=== PATIENT | male | born 1980 | race Caucasian/White ===

== ENCOUNTER 2019-01-03 20:28 | Emergency (ER) | payer BC ==
--- NOTE | 2019-01-03 21:06 | RADIOLOGY REPORT (SQ) ---
EXAM DESCRIPTION: XR WRIST 3 OR MORE VIEWS COMPLETED DATE/TME: 01/03/2019 20:32 CLINICAL HISTORY: 38 years, Male, FOOSH Findings: Bony alignment is anatomic. No fracture or dislocation. Soft tissues are unremarkable. IMPRESSION: No fracture.
[2019-01-03] MEDS ORDERED: OXYCODONE-ACETAMINOPHEN 5-325 MG TABLET PO ONE (21:44)
--- NOTE | 2019-01-03 21:50 | ER Document Report ---
Addendum entered and electronically signed by KRZYSZTOF MATOS PA-C 01/04/19 01:11: Course - Re-evaluation Re-evalutation: 01/04/19 01:08 Patient's x-rays were negative but patient's pain was out of proportion with his exam and after discussing the case with Dr. Odonnell I decided to workup the patient with IV contrasted chest and abdomen pelvis CTs. The sutures on the left wrist were discontinued by the nurse out here in triage because they had been in there for 3 weeks and they were nylon sutures that would not have dissolved on their own. Patient continues to have severe right upper quadrant/rib pain. Need to rule out injury to the liver. Also severe pain in the ribs still. He will get an IV, basic trauma labs, CT scan chest abdomen and pelvis and IV fluids. - Vital Signs Vital signs: Temp Pulse Resp BP Pulse Ox 98.2 F 57 L 24 H 139/73 H 97 01/03/19 20:56 01/03/19 20:56 01/03/19 20:56 01/03/19 20:56 01/03/19 20:56 - Laboratory Laboratory results interpreted by me: 01/03/19 21:54 Urine Protein 30 H Urine Ketones 20 H Urine Bilirubin SMALL H Urine Urobilinogen 4.0 H Original Note: ED Medical Screen (RME) - General Chief Complaint: Fall Stated Complaint: FALL INJURY Time Seen by Provider: 01/03/19 21:42 Primary Care Provider: EDISON,NO [Primary Care Provider] - Follow up as needed Notes: 38-year-old male coming in today with chief complaint that he fell out of a tree. Patient states he fell roughly 5-7 feet out of a tree. He is complaining of pain in the right side of his lower back. He is also having bilateral rib pain. Also having some pain to his left hand. He does not complain of any chest injury, abdominal injury or cervical spine injury. He states that he did hit his head but did not lose consciousness have dizziness lightheadedness or syncope. I have treated and performed a rapid initial assessment of this patient. A comprehensive ED assessment and evaluation of the patient, analysis of test results and completion of medical decision making process will be conducted by additional ED providers. PHYSICAL EXAMINATION: GENERAL: Patient appears uncomfortable.. LUNGS: CTA. no distress HEART: Regular rate and rhythm without murmurs, rubs, gallops. ABDOMEN: Soft, nondistended abdomen. No guarding, no rebound. Normal bowel sounds present. No CVA tenderness bilaterally. Extremities: Left hand diffusely tender. Back: right sided lumbar tenderness. NEUROLOGICAL: Normal speech, normal gait. PSYCH: Normal mood, normal affect. TRAVEL OUTSIDE OF THE [place] IN LAST 30 DAYS: No Physical Exam - Vital signs Vitals: Temp Pulse Resp BP Pulse Ox 98.2 F 57 L 24 H 139/73 H 97 01/03/19 20:56 01/03/19 20:56 01/03/19 20:56 01/03/19 20:56 01/03/19 20:56 Course - Vital Signs Vital signs: Temp Pulse Resp BP Pulse Ox 98.2 F 57 L 24 H 139/73 H 97 01/03/19 20:56 01/03/19 20:56 01/03/19 20:56 01/03/19 20:56 01/03/19 20:56 Doctor's Discharge - Discharge Referrals: LOCALMD,NO [Primary Care Provider] - Follow up as needed
[2019-01-03 22:23] LABS: APPEARANCE,URINE CLEAR; BILIRUBIN,URINE SMALL (NEGATIVE); GLUCOSE, URINE NEGATIVE (NEGATIVE); KETONES,URINE 20 mg/dL (NEGATIVE); LEUKOCYTE ESTERASE,URINE NEGATIVE (NEGATIVE); NITRITE,URINE NEGATIVE (NEGATIVE); PROTEIN,URINE 30 mg/dL (NEGATIVE); URINE SPECIFIC GRAVITY 1.039
[2019-01-03 22:35] LABS: COLOR,URINE DARK YELLOW
--- NOTE | 2019-01-03 22:40 | RADIOLOGY REPORT (SQ) ---
EXAM DESCRIPTION: [facility]: XR RIBS BILATERAL WITH CHEST Views: 4, AP chest and 3 views of ribs. CLINICAL HISTORY: 38 years Male, injury COMPARISON: None. FINDINGS: Chest single view: Lungs are clear, with no focal infiltrate, pneumothorax, or pleural effusion. Mediastinum is within normal limits for this positioning. Ribs: Visualized ribs are intact, with no displaced fractures. No suspicious lytic or blastic rib lesions. No subpleural thickening. IMPRESSION: 1. No acute findings.
--- NOTE | 2019-01-03 22:52 | RADIOLOGY REPORT (SQ) ---
EXAM DESCRIPTION: [facility]: XR LUMBAR SPINE ANTEROPOSTERIOR, LATERAL, AND OBLIQUES Views: 5 CLINICAL HISTORY: 38 years Male, injury COMPARISON: None. FINDINGS: There is straightening of the normal lumbar lordosis. No subluxation or significant loss of intervertebral disc height or vertebral body height. No evidence for acute fracture. No focal bone lesions. 2 surgical clips are noted in the abdomen. IMPRESSION: 1. No acute fracture or subluxation. 2. Straightening of the normal lumbar lordosis, which can be an indication of muscular strain injury.
--- NOTE | 2019-01-03 22:52 | RADIOLOGY REPORT (SQ) ---
EXAM DESCRIPTION: XR HAND 3 OR MORE VIEWS COMPLETED DATE/TME: 01/03/2019 21:44 CLINICAL HISTORY: 38 years, Male, injury COMPARISON: None. NUMBER OF VIEWS: Three TECHNIQUE: Frontal, oblique, and lateral radiographs of the left hand were obtained LIMITATIONS: None. FINDINGS: A small retained radiopaque foreign body projects over the soft tissues about the fourth digit adjacent to the middle phalangeal shaft. Remaining visualized osseous structures are normal in appearance of acute fracture or dislocation. IMPRESSION: No acute osseous anomaly. Retained radiopaque foreign body located within the soft tissues adjacent to the fourth middle phalangeal shaft. copyright 2010 [employer]- All Rights Reserved
[2019-01-04] MEDS ORDERED: MORPHINE SULFATE 10 MG/ML INJ IV ONE (00:54)
[2019-01-04] MEDS ORDERED: HYDROCODONE/ACETAMINOPHEN 5-325 MG (6 TAB/ER DISP) PO PRN (00:55)
[2019-01-04] MEDS ORDERED: ONDANSETRON 4 MG TAB.RAPDIS PO ONE (00:55)
--- NOTE | 2019-01-04 01:04 | ER Document Report ---
ED General - General Chief Complaint: Fall Stated Complaint: FALL INJURY Time Seen by Provider: 01/03/19 21:42 Primary Care Provider: CHEYENNE HOGAN [Primary Care Provider] - Follow up as needed TRAVEL OUTSIDE OF THE [place] IN LAST 30 DAYS: No Past Medical History - Social History Smoking Status: Unknown if Ever Smoked Patient has suicidal ideation: No Patient has homicidal ideation: No Renal/ Medical History: Denies: Hx Peritoneal Dialysis Physical Exam - Vital signs Vitals: Temp Pulse Resp BP Pulse Ox 98.2 F 57 L 24 H 139/73 H 97 01/03/19 20:56 01/03/19 20:56 01/03/19 20:56 01/03/19 20:56 01/03/19 20:56 Course - Vital Signs Vital signs: Temp Pulse Resp BP Pulse Ox 98.2 F 57 L 24 H 139/73 H 97 01/03/19 20:56 01/03/19 20:56 01/03/19 20:56 01/03/19 20:56 01/03/19 20:56 - Laboratory Laboratory results interpreted by me: 01/03/19 21:54 Urine Protein 30 H Urine Ketones 20 H Urine Bilirubin SMALL H Urine Urobilinogen 4.0 H Discharge - Discharge Referrals: CHEYENNE HOGAN [Primary Care Provider] - Follow up as needed
[2019-01-04] MEDS ORDERED: NORMAL SALINE 1000 ML 1,000 ML IV ONE (01:06)
[2019-01-04] MEDS ORDERED: ONDANSETRON HCL INJ/PF 4 MG/2 ML SDV IV ONE (01:10)
[2019-01-04 01:30] VITALS: BP 134/83
[2019-01-04 01:40] LABS: ABSOLUTE BASOPHILS # (AUTO) 0.1 10^3/uL (0.0-0.2); ABSOLUTE LYMPHOCYTES (AUTO) 1.5 10^3/uL (0.5-4.7); ABSOLUTE MONOCYTES (AUTO) 0.4 10^3/uL (0.1-1.4); ABSOLUTE NEUT (AUTO) 3.5 10^3/uL (1.7-8.2); BASOPHILS % (AUTO) 1.3 % (0-2); EOSINOPHILS % (AUTO) 0.3 % (0-6); LYMPHOCYTES % (AUTO) 26.3 % (13-45); MEAN CORPUSCULAR HEMOGLOBIN 31.7 pg (27.0-33.4); MEAN CORPUSCULAR HGB CONC 34.1 g/dL (32.0-36.0); MEAN CORPUSCULAR VOLUME 93 fl (80-97); PLATELET COUNT 196 10^3/uL (150-450); RED BLOOD COUNT 4.41 10^6/uL (4.35-5.55); RED CELL DISTRIBUTION WIDTH 12.9 % (11.5-14.0); SEGMENTED NEUTROPHILS % (AUTO) 64.1 % (42-78); TOTAL CELLS COUNTED % (AUTO) 100 %; WHITE BLOOD COUNT 5.5 10^3/uL (4.0-10.5)
[2019-01-04 01:46] LABS: INTERNATIONAL RATION (INR) 0.91; PARTIAL THROMBOPLASTIN TIME 27.4 SEC (23.5-35.8); PROTHROMBIN TIME 12.7 SEC (11.4-15.4)
[2019-01-04 01:51] LABS: ALANINE AMINOTRANSFERASE 23 U/L (21-72); ALBUMIN 4.5 g/dL (3.5-5.0); ALKALINE PHOSPHATASE 58 U/L (38-126); ANION GAP 7 (5-19); ASPARTATE AMINO TRANSFERASE 27 U/L (17-59); BILIRUBIN,DIRECT 0.2 mg/dL (0.0-0.4); BILIRUBIN,TOTAL 1.2 mg/dL (0.2-1.3); BLOOD UREA NITROGEN 18 mg/dL (7-20); CALCIUM 9.8 mg/dL (8.4-10.2); CARBON DIOXIDE 24 mmol/L (22-30); CHLORIDE 112 mmol/L (98-107); GLUCOSE 95 mg/dL (75-110); POTASSIUM 3.9 mmol/L (3.6-5.0); SODIUM 143.1 mmol/L (137-145); TOTAL PROTEIN 7.8 g/dL (6.3-8.2)
--- NOTE | 2019-01-04 02:33 | RADIOLOGY REPORT (SQ) ---
EXAM DESCRIPTION: CT ABDOMEN PELVIS WITH IV CONTRAST, CT CHEST WITH IV CONTRAST COMPLETED DATE/TME: 01/04/2019 01:05 CLINICAL HISTORY: 38 years, Male, TRAUMA - Fall from Tree COMPARISON: None. TECHNIQUE: Axial CT images of the chest, abdomen, and pelvis were obtained after the administration of IV contrast. Sagittal and coronal reformats were performed. PENDING SALE TO [facility] 1017 Images stored on PACS. All CT scanners at this facility use dose modulation, iterative reconstruction, and/or weight based dosing when appropriate to reduce radiation dose to as low as reasonably achievable (ALARA). [facility]: Dose Right [facility]: CareDose [facility]: Dose Right [facility]: Teradose 4D [facility]: eSnips LIMITATIONS: None. FINDINGS: --Chest-- Thoracic aorta: Unremarkable. Heart: Unremarkable. Mediastinum: No pathologic sized middle mediastinal lymphadenopathy. Tracheobronchial tree: Unremarkable. Lungs: Lobar consolidation: Negative. Pleural effusion: Negative. Pneumothorax: Negative. Other: Negative. Bones: Unremarkable. --Abdomen-- Solid abdominal viscera: Liver: Unremarkable. Gallbladder: Unremarkable. Pancreas: Unremarkable. Spleen: Unremarkable. Adrenal glands: Unremarkable. Right kidney: No hydronephrosis. Left kidney: No hydronephrosis. Urinary bladder: Unremarkable. Abdominal aorta: Unremarkable. Peritoneal: Free fluid: None. Free air: None. Other: No pathologic sized lymph nodes in the upper abdomen. Bowel: Stomach: Unremarkable. Small bowel: Unremarkable. Appendix: Cholecystectomy. Colon: Unremarkable. Rectum: Unremarkable. Prostate: Unremarkable. Bones: Unremarkable. IMPRESSION: No evidence of acute traumatic injury to the chest, abdomen, or pelvis. TECHNICAL DOCUMENTATION: Quality ID # 436: Final reports with documentation of one or more dose reduction techniques (e.g., Automated exposure control, adjustment of the mA and/or kV according to patient size, use of iterative reconstruction technique) copyright 2010 [employer]- All Rights Reserved
--- NOTE | 2019-01-04 02:33 | RADIOLOGY REPORT (SQ) ---
EXAM DESCRIPTION: CT ABDOMEN PELVIS WITH IV CONTRAST, CT CHEST WITH IV CONTRAST COMPLETED DATE/TME: 01/04/2019 01:05 CLINICAL HISTORY: 38 years, Male, TRAUMA - Fall from Tree COMPARISON: None. TECHNIQUE: Axial CT images of the chest, abdomen, and pelvis were obtained after the administration of IV contrast. Sagittal and coronal reformats were performed. [facility] 1017 Images stored on PACS. All CT scanners at this facility use dose modulation, iterative reconstruction, and/or weight based dosing when appropriate to reduce radiation dose to as low as reasonably achievable (ALARA). [facility]: Dose Right [facility]: CareDose [facility]: Dose Right [facility]: Teradose 4D [facility]: Formlabs LIMITATIONS: None. FINDINGS: --Chest-- Thoracic aorta: Unremarkable. Heart: Unremarkable. Mediastinum: No pathologic sized middle mediastinal lymphadenopathy. Tracheobronchial tree: Unremarkable. Lungs: Lobar consolidation: Negative. Pleural effusion: Negative. Pneumothorax: Negative. Other: Negative. Bones: Unremarkable. --Abdomen-- Solid abdominal viscera: Liver: Unremarkable. Gallbladder: Unremarkable. Pancreas: Unremarkable. Spleen: Unremarkable. Adrenal glands: Unremarkable. Right kidney: No hydronephrosis. Left kidney: No hydronephrosis. Urinary bladder: Unremarkable. Abdominal aorta: Unremarkable. Peritoneal: Free fluid: None. Free air: None. Other: No pathologic sized lymph nodes in the upper abdomen. Bowel: Stomach: Unremarkable. Small bowel: Unremarkable. Appendix: Cholecystectomy. Colon: Unremarkable. Rectum: Unremarkable. Prostate: Unremarkable. Bones: Unremarkable. IMPRESSION: No evidence of acute traumatic injury to the chest, abdomen, or pelvis. TECHNICAL DOCUMENTATION: Quality ID # 436: Final reports with documentation of one or more dose reduction techniques (e.g., Automated exposure control, adjustment of the mA and/or kV according to patient size, use of iterative reconstruction technique) copyright 2010 [employer]- All Rights Reserved
[2019-01-04] MEDS ORDERED: LIDOCAINE 5% (700 MG) TRANSDERMAL ADH..PATCH TP ONE (03:03)
--- NOTE | 2019-01-04 03:08 | ER Document Report ---
ED General - General Chief Complaint: Fall Stated Complaint: FALL INJURY Time Seen by Provider: 01/03/19 21:42 Primary Care Provider: CHEYENNE HOGAN [Primary Care Provider] - Follow up as needed Notes: Patient is a 38-year-old male without chronic medical problems presents after falling between 5 and 7 feet out of a tree. States he was trying to cut tree limbs, lost his balance and fell out of the tree landing onto his right ribs and right low back. States that since that time he has had in a relatively abrupt onset of throbbing, constant, aching pain to the affected areas. He states moving, breathing or coughing dramatically worsens the pain. Has not tried anything for relief of the pain. He regards the pain as being severe. States he bumped his head but did not sustain any serious head injury. No LOC, w eakness, numbness or confusion since that time. Has not seen his primary doctor regarding today's concerns. Does not use any form of anti-coagulation. TRAVEL OUTSIDE OF THE [place] IN LAST 30 DAYS: No - Related Data Allergies/Adverse Reactions: No Known Allergies Allergy (Verified 01/04/19 01:33) Past Medical History - General Information source: Patient - Social History Smoking Status: Current Every Day Smoker Frequency of alcohol use: None Drug Abuse: None Lives with: Family Family History: Reviewed & Not Pertinent Patient has suicidal ideation: No Patient has homicidal ideation: No Renal/ Medical History: Denies: Hx Peritoneal Dialysis Review of Systems - Review of Systems Notes: Constitutional: Negative for fever. Eyes: Negative for visual changes. ENT: Negative for facial injury Cardiovascular: Positive for chest injury. Respiratory: Negative for shortness of breath. Gastrointestinal: Negative for abdominal injury. Genitourinary: Negative for genital injury Musculoskeletal: Positive for back injury. Skin: Positive for laceration/abrasions. Neurological: Negative for head injury. Physical Exam - Vital signs Vitals: Temp Pulse Resp BP Pulse Ox 98.2 F 57 L 24 H 139/73 H 97 01/03/19 20:56 01/03/19 20:56 01/03/19 20:56 01/03/19 20:56 01/03/19 20:56 Interpretation: Normal Notes: PHYSICAL EXAMINATION: GENERAL: Well-appearing, no acute distress. HEAD: Atraumatic, normocephalic. EYES: Pupils equal round and reactive to light, extraocular movements intact, sclera anicteric, conjunctiva are normal. ENT: nares patent, no oral pharyngeal trauma. No hemotympanum, no Norman's sign, no raccoon eyes. NECK: No midline cervical spine tenderness. Patient able to move their head to 45 bilaterally without any discomfort. LUNGS: Breath sounds clear to auscultation bilaterally and equal. No wheezes rales or rhonchi. HEART: Regular rate and rhythm without murmurs. CHEST WALL: No ecchymosis over the chest wall. Pain on palpation of the right lower ribs ABDOMEN: Soft, nontender, normoactive bowel sounds. No guarding, no rebound. No abdominal bruising EXTREMITIES: Normal range of motion, no pitting or edema. No long bone deformities. BACK: No midline spinal tenderness, step-offs, or deformities. NEUROLOGICAL: Face symmetric. Tongue protrudes midline. Extraocular motions intact. Pupils are 2 mm and equally reactive. Normal speech, normal gait. 5 out of 5 strength in both the distal and proximal upper and lower extremities bilaterally. Sensation is grossly intact throughout. Finger to nose testing normal. Pronator drift normal. PSYCH: Normal mood, normal affect. SKIN: Warm, Dry, normal turgor, abrasions over the volar aspect of the left wrist Course - Re-evaluation Re-evalutation: 01/04/19 03:05 Presentation of a well patient in no acute distress, vitals within normal limits after a fall out of a tree approximately 5 feet in total height landing onto his right ribs and right low back. Patient states that he bumped his head but denies injury to cervical spine region. No focal neurologic deficits on exam, no evidence of basilar skull fracture on exam without evidence of hemotympanum, raccoon eyes, or periauricular hematoma. No papilledema. Patient is not on anticoagulation. GCS is 15. No loss of consciousness. No episodes of vomiting. Patient is therefore negative via [place] head CT criteria and CT imaging will not be obtained at this time. Patient also evaluated by nexus criteria and found to be negative. Patient is also negative by nigerien C-spine criteria. No clinical evidence to suggest increased risk of cervical spine fracture. No indication for further imaging of the cervical spine. Patient has no focal deformities or limited range of motion in any joint space but does complain of some mild left hand pain which he states that he tried to brace himself with. Left hand x-ray and wrist x-ray unremarkable without evidence of acute fractures although do show retained foreign body in the fourth digit which the patient states is chronic and likely from a prior injury as a child. There is no laceration over the area, old scar suggestive of a retained foreign body from prior injury. The patient does have focal tenderness over the right lower ribs. In triage the physician logistics assistant did order a CT scan of the chest abdomen and pelvis which not reveal any rib fractures, solid organ injuries or pulmonary injuries. Patient did complain of some bilateral paralumbar spinal tenderness although he has no midline spinal tenderness, step-offs or deformities. Lumbar x-ray obtained again by the physician logistics assistant in triage was reviewed and noted to be normal. There is no obvious findings on trauma exam today and therefore no further imaging or evaluation will be obtained at this time. At this time will discharge with return precautions and follow-up recommendations. Verbal discharge instructions given a the bedside and opportunity for questions given. Medication warnings reviewed. Patient is in agreement with this plan and has verbalized understanding of return precautions and the need for primary care follow-up in the next 24-72 hours. - Vital Signs Vital signs: Temp Pulse Resp BP Pulse Ox 98.3 F 75 17 134/83 H 98 01/04/19 03:10 01/04/19 03:10 01/04/19 03:10 01/04/19 01:20 01/04/19 03:10 - Laboratory Result Diagrams: 01/04/19 01:25 01/04/19 01:25 Laboratory results interpreted by me: 01/03/19 01/04/19 21:54 01:25 Chloride 112 H Urine Protein 30 H Urine Ketones 20 H Urine Bilirubin SMALL H Urine Urobilinogen 4.0 H - Diagnostic Test Radiology reviewed: Image reviewed, Reports reviewed Radiology results interpreted by me: 01/04/19 03:07 Left hand x-ray: No acute fracture or dislocation, foreign body in fourth digit Left wrist x-ray: No acute fracture dislocation Discharge - Discharge Clinical Impression: Rib injury Fall Qualifiers: Encounter type: initial encounter Qualified Code(s): W19.XXXA - Unspecified fall, initial encounter Low back pain Qualifiers: Chronicity: acute Back pain laterality: bilateral Sciatica presence: without sciatica Qualified Code(s): M54.5 - Low back pain Condition: Good Disposition: HOME, SELF-CARE Additional Instructions: Your chest wall pain is due to bruising of your ribs. This pain can last for up to 6 weeks. It is very important that you continue to take purposeful deep breaths. For your pain: Continue to take ibuprofen 600 mg every 6 hours or Tylenol 1000 mg every 6 hours. Apply local lidocaine to the area per bottle instructions. There is a product sold [id number] called "Aspercreme with lidocaine" that you can use for this purpose. Please follow-up with her primary care doctor in the next 2-3 days. Return to the emergency department immediately if you develop worsening shortness of breath, increased pain, begin coughing blood, pass out, you develop a a sudden or severe headache, confusion, slurred speech, facial droop, weakness or numbness in any arm or leg, extreme fatigue, vomiting more than two times, severe abdominal pain, or other symptoms that concern you. Referrals: EDISON,NO [Primary Care Provider] - Follow up as needed
== END 2019-01-04 03:21 | disposition home or self-care (01) ==
LOC: ER 20:28
DX: S29.9XXA Unspecified injury of thorax, initial encounter (principal); S60.812A Abrasion of left wrist, initial encounter; M54.5 Low back pain; M79.642 Pain in left hand; W14.XXXA Fall from tree, initial encounter; Y93.H9 Activity, other involving exterior property and land maintenance, building and construction; M79.5 Residual foreign body in soft tissue; F17.200 Nicotine dependence, unspecified, uncomplicated
CPT/HCPCS: 99284; 96361; 96374; 36415; 85025; 85610; 85730; 80053; 81001; 73130; 72110; 71111; 73110; 71260; 74177; S0119; J2270; J7030